=== PATIENT | male | born 1980 | race Caucasian/White ===

== ENCOUNTER 2017-07-24 08:59 | Emergency (ER) | payer OTHER ==
[2017-07-24 09:22] VITALS: BP 143/87
--- NOTE | 2017-07-24 09:32 | EDM.PDOC ---
ED HPI GENERAL MEDICAL PROBLEM - General Chief Complaint: ENT Problem Stated Complaint: EAR INFECTION Time Seen by Provider: 07/24/17 09:25 Source of Information: Reports: Patient, RN Notes Reviewed History Limitations: Reports: No Limitations - History of Present Illness INITIAL COMMENTS - FREE TEXT/NARRATIVE: 36-year-old gentleman presents emergency department day complaint of left ear pain, he states been going on for several weeks but progressively gotten worse he did place a Q-tip in there and some greenish material came out. He denies any fevers no difficulty swallowing problems with hearing left ear Pain Score (Numeric/FACES): 5 - Related Data Allergies Allergy/AdvReac Type Severity Reaction Status Date / Time Penicillins Allergy Hives Verified 07/24/17 09:15 Home Meds: Home Meds NK [No Known Home Meds] 07/24/17 [History] Past Medical History Respiratory History: Reports: Asthma Social & Family History - Caffeine Use Caffeine Use: Reports: Soda - Alcohol Use Days Per Week of Alcohol Use: 2 Number of Drinks Per Day: 6 Total Drinks Per Week: 12 - Recreational Drug Use Recreational Drug Use: No ED ROS ENT - Review of Systems Review Of Systems: See Below Constitutional: Denies: Fever, Chills HEENT: Reports: Ear Discharge, Ear Pain Respiratory: Reports: No Symptoms Cardiovascular: Reports: No Symptoms ED EXAM, ENT - Physical Exam Exam: See Below Text/Narrative:: Examination of the ears right tympanic membranes clear and ocampo landmarks and light reflex are present, left tympanic membrane is not visualized the canal is markedly edematous there is thick yellow drainage present Exam Limited By: No Limitations General Appearance: Alert, WD/WN, No Apparent Distress Neck: Normal Inspection, Supple, Non-Tender, Full Range of Motion Course - Vital Signs Last Recorded V/S: Last Vital Signs Temp 97.3 F 07/24/17 09:20 Pulse 82 07/24/17 09:20 Resp 14 07/24/17 09:20 BP 143/87 H 07/24/17 09:20 Pulse Ox 96 07/24/17 09:20 Departure - Departure Time of Disposition: 09:31 Disposition: Home, Self-Care 01 Condition: Good Clinical Impression: Otitis externa of left ear Qualifiers: Otitis externa type: other infective Chronicity: acute Qualified Code(s): H60.392 - Other infective otitis externa, left ear - Discharge Information Referrals: PCP,None [Primary Care Provider] - Additional Instructions: Take full course of antibiotics, Please followup with your primary care provider in 5-7 days if not better, please call return to the emergency department with worsening of symptoms. - Assessment/Plan Plan: Assessment Acuity = acute Site and laterality = left otitis externa Etiology = unclear etiology probable bacterial involvement Manifestations = otalgia Location of injury = Home Lab values = none] Plan Corticosporin otic 3 drops 4 times a day 7 days follow-up with primary care 5- 7 days if not better Patient was in agreement with the plan all questions were answered, they were instructed to return to the emergency department or call for worsening symptoms. This note was dictated using [employer] voice recognition software please call with any questions.
== END 2017-07-24 09:45 | disposition home or self-care (01) ==
LOC: JP.ED 08:59
DX: H60.392 Other infective otitis externa, left ear (principal); J45.909 Unspecified asthma, uncomplicated; Z88.0 Allergy status to penicillin
CPT/HCPCS: 99283